=== PATIENT | male | born 1990 | race Two or more races ===

== ENCOUNTER 2020-04-03 23:17 | Emergency (ER) | payer OTHER ==
[~2020-04-03] VITALS: Ht 180.3 cm; Wt 79.4 kg
[2020-04-03 23:45] VITALS: BP 141/82
[2020-04-04] MEDS: TDAP [DIPH/PERTUSSIS/TET] 0.5 ML VIAL IM ONE (00:30)
--- NOTE | 2020-04-04 00:48 | NUR ---
PATIENT GIVEN STERI-STRIPS ON RIGHT EYEBROW
[2020-04-04] MEDS ORDERED: TDAP [DIPH/PERTUSSIS/TET] 0.5 ML VIAL IM ONE (01:52)
--- NOTE | 2020-04-04 02:08 | NUR ---
Patient discharged to home in stable condition. Written and verbal after care instructions given. Patient verbalizes understanding of instruction.
--- NOTE | 2020-04-04 02:09 | NUR ---
PATIENT IS NOW IN CUSTODY OF [facility].
== END 2020-04-04 02:10 ==
LOC: ER 23:25
DX: S01.112A Laceration without foreign body of left eyelid and periocular area, initial encounter (principal); S09.90XA Unspecified injury of head, initial encounter; L02.414 Cutaneous abscess of left upper limb; Y08.89XA Assault by other specified means, initial encounter; Y93.89 Activity, other specified; Y92.89 Other specified places as the place of occurrence of the external cause; Y99.8 Other external cause status
CPT/HCPCS: 70450; 90471; 90715; 99284; A6403